=== PATIENT | female | born 1950 | race Caucasian/White ===

== ENCOUNTER 2020-12-19 14:49 | Outpatient (CLI) | payer MEDICARE ==
--- NOTE | 2020-12-19 16:09 | MRI Report ---
PROCEDURE: Brain W/O INDICATIONS: COGNITIVE IMPAIRMENT TECHNIQUE: Noncontrast axial T1 spin echo, axial T2 fast spin echo, sagittal and axial FLAIR, coronal T2 fast sp in echo, axial gradient echo, axial diffusion and ADC through the brain. COMPARISON: None. FINDINGS: Image quality: Degraded by patient motion artifact. CSF Spaces: Basal cisterns are patent. No extra-axial fluid collections. There is diffuse prominenc e of CSF space with prominence of the ventricles out of proportion prominence of the sulci which coul d be due to central volume loss versus normal pressure hydrocephalus. Brain: No intracranial masses or hemorrhage. Pedraza/white matter interface is normal. Brainstem appe ars normal. Diffusion-weighted images demonstrate no acute ischemic insult. No chronic ischemic ins ults. Normal intravascular flow voids are present. Skull and face: Calvarium has normal marrow signal. Orbits appear normal. Sinuses: Sinuses and mastoids are clear. IMPRESSION: 1. Image quality degraded by patient motion artifact. 2. Diffuse cerebral volume loss. 3. Mild ventriculomegaly. Finding could due to central volume loss versus normal pressure hydrocephal us. Recommend correlation with clinical findings. 4. No abnormal intracranial mass or mass effect. 5. No areas of acute or chronic infarction. Reviewed by: Esther Savage MD, PhD on 12/19/2020 4:08 PM PDT Approved by: Esther Savage MD, PhD on 12/19/2020 4:08 PM PDT Station ID: [id number]
== END 2020-12-19 14:50 | disposition home or self-care (01) ==
LOC: DI 14:49
PROVIDERS: ATTEND Psychiatry & Neurology Neurology
DX: R41.89 Other symptoms and signs involving cognitive functions and awareness (principal); R42 Dizziness and giddiness; G93.89 Other specified disorders of brain

== ENCOUNTER 2021-06-24 11:40 | Outpatient (CLI) | payer MEDICARE | END 2021-06-24 11:41 | disposition critical access hospital (66) | LOC: EMS 11:40 | DX: R52 Pain, unspecified (principal); R41.0 Disorientation, unspecified; Z86.73 Personal history of transient ischemic attack (TIA), and cerebral infarction without residual deficits; Z87.440 Personal history of urinary (tract) infections | CPT/HCPCS: A0425; A0429 ==

== ENCOUNTER 2021-06-24 11:55 | Emergency (ER) | payer MEDICARE ==
--- NOTE | 2021-06-24 12:08 | ED Physician Documentation ---
PD HPI ALTERED MENTAL STATUS - Stated complaint Stated Complaint: CONFUSED - History obtained from History obtained from: Patient, Family (daughter is here with her), EMS - History of Present Illness Timing - onset: Yesterday Timing - duration: Days (1) Timing - details: Gradual onset, Still present Quality / character: Confused (Patient with a history of some Alzheimer's but typically is able to have conversation but just has memory deficit. Since yesterday has been less verbal and more having echolalia. No focal weakness. No facial droop. Words are discernible.), Other (stiffness of movement for right hip and leg without pain. Baseline stiffness with left leg) Associated symptoms: Other (The patient's daughter is here to give history. She states the patient did test positive for COVID on June 06 through without really any upper respiratory symptoms nor dyspnea. Has been negative after that.). No: Fever, Dyspnea, Cough Contributing factors: Recent illness. No: Anticoagulated, Recent med change, Recent injury (no falls nor injury.) Basline status: Ambulatory, Disoriented Similar symptoms before: Diagnosis (The patient's daughter states she has had confusion and decreased interaction with infections in the past, in particular UTIs.) Review of Systems Constitutional: denies: Fever Nose: denies: Congestion Cardiac: denies: Chest pain / pressure Respiratory: denies: Dyspnea, Cough GI: denies: Abdominal Pain, Vomiting, Diarrhea : reports: Incontinent Neurologic: denies: Focal weakness (actually stiffness without spasticity in legs, left more than right, which patient says will happen with patient at times (left leg).) PD PAST MEDICAL HISTORY - Past Medical History Cardiovascular: None Respiratory: None Neuro: Alzhiemer's, Dementia (daughter says Neurologist at has Dx with neurologic disorder affecting lower motor neurons and thus leg stiffness at times.), CVA Endocrine/Autoimmune: None - Present Medications Home Medications: Ambulatory Orders Medication Instructions Recorded Confirmed Baclofen [Lioresal] 5 mg PO DAILY 06/24/21 06/24/21 Losartan Potassium 0.5 tab PO DAILY 06/24/21 06/24/21 Sertraline HCl 100 mg PO DAILY 06/24/21 06/24/21 cephALEXin [Keflex] 500 mg PO TID 7 Days #20 cap 06/24/21 - Allergies Allergies/Adverse Reactions: Allergies Allergy/AdvReac Type Severity Reaction Status Date / Time No Known Drug Allergies Allergy Verified 06/24/21 12:40 PD ED PE NORMAL - Vitals Vital signs reviewed: Yes - General General: Well developed/nourished. No: Alert and oriented X 3 (oriented to person. She does repeat what I say often rather than responding per se. ) - HEENT HEENT: Atraumatic, PERRL, EOMI - Neck Neck: Supple, no meningeal sign, No bony TTP, No adenopathy - Cardiac Cardiac: RRR, No murmur - Respiratory Respiratory: Clear bilaterally - Abdomen Abdomen: Soft, Non tender, Non distended - Derm Derm: Normal color, Warm and dry - Extremities Extremities: No edema, No calf tenderness / cord - Neuro Neuro: Other (Stiffness without spasticity nor cogwheeling of both legs, more on the left. No obvious pain on range of motion. No obvious deformities.). No: Alert and oriented X 3 (will state her name. Otherwise alert but not spontaneous ly verbal. Repeating questions asked rather than responding per se most of the time. ) Results - Vitals Vitals: Vital Signs - 24 hr 06/24/21 06/24/21 06/24/21 12:05 12:44 13:14 Temperature 36.4 C L Heart Rate 76 70 72 Respiratory 19 15 18 Rate Blood Pressure 130/74 141/69 H 133/70 H O2 Saturation 98 100 99 06/24/21 06/24/21 06/24/21 13:30 14:00 14:30 Temperature 36.7 C 36.0 C L Heart Rate 68 79 80 Respiratory 16 16 17 Rate Blood Pressure 125/71 128/73 147/124 H O2 Saturation 99 100 95 06/24/21 15:00 Temperature Heart Rate 96 Respiratory 20 Rate Blood Pressure 134/74 H O2 Saturation 96 Oxygen O2 Source Room air - EKG (time done) 12:41 Rate: Rate (enter#) (69) Rhythm: NSR [place]: Normal Intervals: Normal IN QRS: Normal Ischemia: Normal ST segments. No: ST elevation c/w ischemia, ST depression - Labs Labs: Laboratory Tests 06/24/21 06/24/21 06/24/21 12:05 12:05 12:05 WBC 7.1 RBC 4.76 Hgb 12.4 Hct 38.8 MCV 81.5 MCH 26.1 L MCHC 32.0 RDW 14.6 Plt Count 241 MPV 10.7 Neut # (Auto) 5.2 Lymph # (Auto) 1.2 L [place] # (Auto) 0.6 Eos # (Auto) 0.0 Baso # (Auto) 0.0 Absolute Nucleated RBC 0.00 Nucleated RBC % 0.0 ESR 16 Sodium 134 L Potassium 3.4 L Chloride 95 L Carbon Dioxide 29 Anion Gap 10.0 BUN 15 Creatinine 0.6 Estimated GFR (MDRD) 99 Glucose 115 H Calcium 9.3 Magnesium 2.0 Total Bilirubin 0.6 AST 19 ALT 16 Alkaline Phosphatase 45 Total Creatine Kinase 88 Troponin I High Sens Total Protein 6.6 L Albumin 3.7 Globulin 2.9 Albumin/Globulin Ratio 1.3 Lipase 34 Urine Color Urine Clarity Urine pH Ur Specific Susan Urine Protein Urine Glucose (UA) Urine Ketones Urine Occult Blood Urine Nitrite Urine Bilirubin Urine Urobilinogen Ur Leukocyte Esterase Urine RBC Urine WBC Ur Squamous Epith Cells Amorphous Sediment Urine Bacteria Ur Microscopic Review Urine Culture Comments 06/24/21 06/24/21 12:05 13:15 WBC RBC Hgb Hct MCV MCH MCHC RDW Plt Count MPV Neut # (Auto) Lymph # (Auto) [place] # (Auto) Eos # (Auto) Baso # (Auto) Absolute Nucleated RBC Nucleated RBC % ESR Sodium Potassium Chloride Carbon Dioxide Anion Gap BUN Creatinine Estimated GFR (MDRD) Glucose Calcium Magnesium Total Bilirubin AST ALT Alkaline Phosphatase Total Creatine Kinase Troponin I High Sens 11.0 Total Protein Albumin Globulin Albumin/Globulin Ratio Lipase Urine Color DARK YELLOW Urine Clarity HAZY Urine pH 6.0 Ur Specific Susan 1.025 Urine Protein TRACE Urine Glucose (UA) NEGATIVE Urine Ketones TRACE Urine Occult Blood NEGATIVE Urine Nitrite NEGATIVE Urine Bilirubin NEGATIVE Urine Urobilinogen 0.2 (NORMAL) Ur Leukocyte Esterase MODERATE H Urine RBC 0-5 Urine WBC >25 H Ur Squamous Epith Cells FEW Squamous Amorphous Sediment Few Urine Bacteria Moderate H Ur Microscopic Review INDICATED Urine Culture Comments INDICATED - Rads (name of study) head CT Radiology: Prelim report reviewed (no acute process. Degenerative changes with volume loss and enlarged ventricles. ), See rad report chest xray Radiology: Prelim report reviewed (no infiltrates nor acute process. ), See rad report PD MEDICAL DECISION MAKING - ED course Complexity details: reviewed results (UA suggestive of UTI and has correlated with similar changes in mentation in the past. Head CT no acute process. ), re- evaluated patient (The patient is unchanged after fluids. The daughter did not think she is her too dehydrated anyway. She was given initial dose of antibiotics. The daughter is comfortable with the patient back at the care facility. Due to the dementia and inability to walk right now, we did feel BLS transport.), considered differential (decreased interaction wtihout focal weakness (stiffness of legs more c/w her neurologic disorder). ), d/w patient, d/w family (daughter) Departure - Departure Disposition: 01 Home, Self Care Clinical Impression: Altered mental status, UTI (urinary tract infection), Muscle stiffness Condition: Stable Instructions: ED UTI Cystitis Female Follow-Up: Bird Cisneros MD [Primary Care Provider] - Prescriptions: cephALEXin [Keflex] 500 mg PO TID 7 Days #20 cap Comments: I transmitted the prescription for cephalexin 3 times a day for 7 days to [facility] in [place]. This is a capsule also could be broken open and given as the granules form if that is easier. Continue with other usual medications. No other obvious process on your basic blood tests, chest x-ray, head CT. The urine did show signs of a urinary tract infection and hopefully this is what is causing her cognitive change as it has in the past. We did push the imaging of the head CT to the system so your neurologist can should be able to view it. Recheck if not improving over the next couple of days. Discharge Date/Time: 06/24/21 15:50
[2021-06-24] MEDS ORDERED: SODIUM CHLORIDE 0.9% 1,000 ML IV STA (12:36)
[2021-06-24 12:45] LABS: BASOPHILS % (AUTO) 0.4 %; EOSINOPHILS % (AUTO) 0.4 %; HCT - HEMATOCRIT 38.8 % (37.0-47.0); HGB - HEMOGLOBIN 12.4 g/dL (12.0-16.0); LYMPHOCYTES # (AUTO) 1.2 10^3/uL (1.5-3.5); MEAN CORPUSCULAR HEMOGLOBIN 26.1 pg (27.0-31.0); MEAN CORPUSCULAR VOLUME 81.5 fL (81.0-99.0); MEAN PLATELET VOLUME 10.7 fL (7.9-10.8); MONOCYTES # (AUTO) 0.6 10^3/uL (0.0-1.0); MONOCYTES % (AUTO) 8.6 %; NEUTROPHILS # (AUTO) 5.2 10^3/uL (1.5-6.6); NEUTROPHILS % (AUTO) 73.2 %; PLT - PLATELET COUNT 241 10^3/uL (130-450); RED BLOOD COUNT 4.76 10^6/uL (4.20-5.40); RED CELL DISTRIBUTION WIDTH 14.6 % (12.0-15.0); WHITE BLOOD COUNT 7.1 x10^3/uL (4.8-10.8)
[2021-06-24 12:57] LABS: ALBUMIN 3.7 g/dL (3.2-5.5); ALBUMIN/GLOBULIN RATIO 1.3 (1.0-2.2); BILIRUBIN,TOTAL 0.6 mg/dL (0.2-1.0); CALCIUM 9.3 mg/dL (8.5-10.3); CREATININE 0.6 mg/dL (0.4-1.0); POTASSIUM 3.4 mmol/L (3.5-5.0); TOTAL PROTEIN 6.6 g/dL (6.7-8.2)
--- NOTE | 2021-06-24 13:04 | CT Report ---
PROCEDURE: HEAD WO INDICATIONS: confused/ decreased alert since yesterday TECHNIQUE: Noncontrast 4.5 mm thick angled axial sections acquired from the foramen magnum to the vertex. For r adiation dose reduction, the following was used: automated exposure control, adjustment of mA and/or kV according to patient size. COMPARISON: Correlation is made with prior brain MRI, 12/19/2020 FINDINGS: Image quality: Excellent. CSF spaces: Basal cisterns are patent. No extra-axial fluid collections. Ventricles are stable and symmetric, yet enlarged. Brain: No midline shift. No intracranial masses or hemorrhage. Pedraza-white matter interface is norm al. Skull and face: Calvarium and visualized facial bones are intact, without suspicious lesions. Sinuses: Moderate mucosal thickening is seen within the maxillary sinuses, with milder mucosal thick ening seen elsewhere within the paranasal sinuses. No significant abnormal fluid can be seen within t he mastoid air cells. IMPRESSION: No intracranial hemorrhage is seen. Brain parenchymal volume loss and chronic small vessel ischemic change can be seen, without an acute intracranial process identified. Stable enlarged lateral ventricles. Please consider normal pressure hydrocephalus. Reviewed by: Bryan Simms MD on 06/24/2021 12:03 PM [facility] Approved by: Bryan Simms MD on 06/24/2021 12:03 PM [facility] Station ID: [id number]
[2021-06-24 13:23] LABS: GLUCOSE, URINE (UA) NEGATIVE (NEGATIVE); KETONES,URINE (UA) TRACE mg/dL (NEGATIVE); LEUKOCYTE ESTERASE, URINE MODERATE (NEGATIVE); NITRITE,URINE NEGATIVE (NEGATIVE); OCCULT BLOOD,URINE NEGATIVE (NEGATIVE); PROTEIN,URINE TRACE mg/dL (NEGATIVE); UROBILINOGEN,URINE 0.2 (NORMAL) E.U./dL (NORMAL)
--- NOTE | 2021-06-24 13:24 | XRAY Report ---
PROCEDURE: Chest 1 View X-Ray INDICATIONS: altered mentation TECHNIQUE: One view of the chest was acquired. COMPARISON: None. FINDINGS: Surgical changes and devices: None. Lungs and pleura: No pleural effusions or pneumothorax. Lungs are clear. Mediastinum: Mediastinal contours appear normal. Heart size is normal. Bones and chest wall: No suspicious bony lesions. Overlying soft tissues appear unremarkable. IMPRESSION: No acute cardiopulmonary abnormality. Reviewed by: Davey Lopez MD on 06/24/2021 1:23 PM [facility] Approved by: Davey Lopez MD on 06/24/2021 1:23 PM [facility] Station ID: [id number]
[2021-06-24 13:37] LABS: CLARITY,URINE HAZY (CLEAR)
[2021-06-24 13:40] LABS: BILIRUBIN,URINE NEGATIVE (NEGATIVE); ICTOTEST,URINE NEGATIVE
[2021-06-24 13:44] LABS: AMORPHOUS SEDIMENT,UR Few /LPF; BACTERIA,URINE Moderate /HPF (None Seen); RBC,URINE 0-5 /HPF (0-5); SQUAMOUS EPITHELIAL CELL,UR FEW Squamous (<= Few); WBC,URINE >25 /HPF (0-5)
[2021-06-24] MEDS ORDERED: cefTRIAXone 1 GM VIAL IVP STA (13:46)
[2021-06-24] MEDS ORDERED: LACTATED RINGERS 1,000 ML IV STA (14:20)
[2021-06-24 15:06] VITALS: BP 134/74
== END 2021-06-24 15:50 | disposition home or self-care (01) ==
LOC: EDUNIT# → EDBD → ED 11:55
DX: R41.82 Altered mental status, unspecified (principal); N39.0 Urinary tract infection, site not specified; M62.89 Other specified disorders of muscle; Z86.16 Personal history of COVID-19; G30.9 Alzheimer's disease, unspecified; F02.80 Dementia in other diseases classified elsewhere, unspecified severity, without behavioral disturbance, psychotic disturbance, mood disturbance, and anxiety; Z74.09 Other reduced mobility
CPT/HCPCS: 36415; 51701; 70450; 71045; 80053; 81001; 82550; 83690; 83735; 84484; 85025; 85651; 87086; 93005; 96374; 99283; 99284; J7120; 81003

== ENCOUNTER 2021-06-24 15:56 | Outpatient (CLI) | payer MEDICARE | END 2021-06-24 15:57 | disposition home or self-care (01) | LOC: EMS 15:56 | PROVIDERS: ATTEND Emergency Medicine | DX: N39.0 Urinary tract infection, site not specified (principal); R53.1 Weakness; R41.0 Disorientation, unspecified | CPT/HCPCS: A0425; A0428 ==

== ENCOUNTER 2021-07-04 11:37 | Outpatient (CLI) | payer MEDICARE ==
[2021-07-04 11:52] LABS: BILIRUBIN,URINE NEGATIVE (NEGATIVE); GLUCOSE, URINE (UA) NEGATIVE (NEGATIVE); KETONES,URINE (UA) NEGATIVE (NEGATIVE); LEUKOCYTE ESTERASE, URINE TRACE (NEGATIVE); NITRITE,URINE NEGATIVE (NEGATIVE); OCCULT BLOOD,URINE TRACE-INTA (NEGATIVE); PROTEIN,URINE NEGATIVE (NEGATIVE); UROBILINOGEN,URINE 0.2 (NORMAL) E.U./dL (NORMAL)
[2021-07-04 12:00] LABS: BACTERIA,URINE Few /HPF (None Seen); CLARITY,URINE HAZY (CLEAR); CRYSTALS,URINE 6-10 Calcium Oxalate /LPF; MUCUS,URINE Moderate Strands; RBC,URINE 0-5 /HPF (0-5); SQUAMOUS EPITHELIAL CELL,UR MOD Squamous (<= Few)
== END 2021-07-04 11:38 | disposition home or self-care (01) ==
LOC: LAB 11:37
PROVIDERS: ATTEND Psychiatry & Neurology Neurology
DX: N39.0 Urinary tract infection, site not specified (principal)
CPT/HCPCS: 81001; 87086

== ENCOUNTER 2021-07-04 17:09 | Outpatient (CLI) | payer MEDICARE | END 2021-07-04 17:10 | disposition critical access hospital (66) | LOC: EMS 17:09 | DX: R39.89 Other symptoms and signs involving the genitourinary system (principal); R41.89 Other symptoms and signs involving cognitive functions and awareness; F03.90 Unspecified dementia, unspecified severity, without behavioral disturbance, psychotic disturbance, mood disturbance, and anxiety | CPT/HCPCS: A0425; A0429 ==

== ENCOUNTER 2021-07-04 17:24 | Emergency (ER) | payer MEDICARE ==
--- NOTE | 2021-07-04 17:43 | ED Physician Documentation ---
History of Present Illness - Stated complaint Stated Complaint: FEM - Chief complaint Chief Complaint: General - Additonal information Additional information: 70-year-old female presents emergency department for evaluation of acute urinary retention. Per her daughter and caregiver at the bedside patient has not been able to urinate now for 24 hours. She was able to provide a very small amount of urine for a urine sample that was sent to the lab. The patient was seen here on 24 June for generalized weakness. At that time found to have a urinary tract infection and did complete a 4-week of antibiotics. Much of the history is obtained from the patient's daughter. Patient has a neurocognitive disorder perhaps early dementia or a basal degenerative disorder. It is unclear at this time. Review of Systems Unable to obtain: Dementia PD PAST MEDICAL HISTORY - Past Medical History Cardiovascular: None Respiratory: None Neuro: Alzhiemer's, Dementia (daughter says Neurologist at has Dx with neurologic disorder affecting lower motor neurons and thus leg stiffness at times.), CVA Endocrine/Autoimmune: None - Present Medications Home Medications: Ambulatory Orders Medication Instructions Recorded Confirmed Losartan Potassium 0.5 tab PO DAILY 06/24/21 06/24/21 Sertraline HCl 100 mg PO DAILY 06/24/21 06/24/21 polyethylene glycoL 3350 [Miralax] 17 gm PO DAILY PRN #1 bottle 07/04/21 - Allergies Allergies/Adverse Reactions: Allergies Allergy/AdvReac Type Severity Reaction Status Date / Time No Known Drug Allergies Allergy Verified 06/24/21 12:40 PD ED PE NORMAL - General General: Alert and oriented X 3, No acute distress - HEENT HEENT: Atraumatic, Moist mucous membranes - Neck Neck: Supple, no meningeal sign - Cardiac Cardiac: RRR, No murmur - Respiratory Respiratory: No respiratory distress - Abdomen Abdomen: Normal bowel sounds, Soft, Non tender (Palpably distended bladder with tenderness.) - Back Back: No CVA TTP, No spinal TTP - Derm Derm: Normal color, Warm and dry, No rash - Extremities Extremities: No deformity, No tenderness to palpate, Normal ROM s pain - Neuro Neuro: Alert and oriented X 3, 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 Eye Opening: Spontaneous Motor: Obeys Commands Verbal: Oriented GCS Score: 15 - Psych Psych: Normal mood Results - Vitals Vitals: Vital Signs - 24 hr 07/04/21 07/04/21 17:32 18:25 Temperature 36.2 C L Heart Rate 80 Respiratory 20 15 Rate Blood Pressure 146/78 H 130/74 O2 Saturation 100 Oxygen O2 Source Room air - Labs Labs: Laboratory Tests 07/04/21 07/04/21 17:47 17:47 WBC 6.1 RBC 4.62 Hgb 12.1 Hct 38.0 MCV 82.3 MCH 26.2 L MCHC 31.8 L RDW 15.3 H Plt Count 255 MPV 10.4 Neut # (Auto) 4.1 Lymph # (Auto) 1.4 L [place] # (Auto) 0.5 Eos # (Auto) 0.1 Baso # (Auto) 0.0 Absolute Nucleated RBC 0.00 Nucleated RBC % 0.0 Sodium 132 L Potassium 3.5 Chloride 96 L Carbon Dioxide 27 Anion Gap 9.0 BUN 14 Creatinine 0.5 Estimated GFR (MDRD) 122 Glucose 107 H Calcium 9.5 Total Bilirubin 0.7 AST 15 ALT 13 Alkaline Phosphatase 38 L Total Protein 6.7 Albumin 3.9 Globulin 2.8 Albumin/Globulin Ratio 1.4 Lipase 54 H - Rads (name of study) CT abd Radiology: Final report received (No renal stone or hydronephrosis. No perinephric fat stranding. No hydroureter. Normal-appearing urinary bladder. Mild fecal stasis and moderate fecal impaction in the rectum.) PD MEDICAL DECISION MAKING - ED course Complexity details: reviewed results, re-evaluated patient, d/w patient ED course: 70-year-old female who has a history of early onset dementia versus temporal lobe will frontal dementia or a neurogenic degenerative syndrome presents the emergency department for evaluation of difficulty urinating for 24 hours. She was diagnosed with a urinary tract infection on 24 June and completed a week of antibiotics. Patient's sister reports that over the last 24 hours the patient has only been able to void once or perhaps twice. The urine sample that was obtained today at home was sent to the lab for evaluation and does not show signs of infection. Here in the emergency department on presentation the patient's bladder did feel distended and a bladder scan revealed 124 mils of urine. I initially ordered a Bishop catheterization to assess the true volume of urinary output however the patient voided and saturated her pad shortly thereafter. I discussed with the patient's daughter that given she no longer has findings of obstruction it would be okay to discharge her back home however her daughter is very concerned that voiding only once or twice a 24 hours is sign of a more insidious problem and is requesting CT scan. Therefore we will proceed with CT abdomen and pelvis. Screening labs do not show any acute worrisome abnormalities. 194: CT of the abdomen has revealed that patient has a large amount of fecal impaction. I suspect the stool burden is the cause of her difficulty urinating. Findings were discussed with patient and daughter at bedside. Patient will be started on MiraLAX. If despite resolution of the constipation she is still having a difficult time urinating that she should return to the ER for a second look. Departure - Departure Disposition: Home, Self Care Clinical Impression: Constipation Qualifiers: Constipation type: unspecified constipation type Qualified Code(s): K59.00 - Constipation, unspecified Condition: Stable Record reviewed to determine appropriate education?: Yes Instructions: ED Constipation Prescriptions: polyethylene glycoL 3350 [Miralax] 17 gm PO DAILY PRN #1 bottle PRN Reason: Constipation Comments: Belle was seen in the emergency department today for concerns of difficulty ur inating. The urine sample that was dropped off earlier in the day did not show signs of infection. Her screening labs today are also without worrisome findings. While here in the emergency department she did void a large amount of urine. We subsequently did do a CT scan of her abdomen and pelvis that did not show any worrisome findings with the exception of a large amount of fecal impaction in her colon. People that become extremely constipated can have a difficult time urinating. It is important that she stay well-hydrated and drink a lot of water. To help relieve the constipation she is to take 1 capful of MiraLAX in 8 ounces of water once or twice a day until she has 3 or 4 watery bowel movements. If despite reducing the constipation her urinary symptoms do not resolve then she is to return to the ER for a second evaluation. A prescription for MiraLAX was sent to the [facility] drug.
[2021-07-04 17:52] LABS: BASOPHILS % (AUTO) 0.3 %; EOSINOPHILS # (AUTO) 0.1 10^3/uL (0.0-0.7); HGB - HEMOGLOBIN 12.1 g/dL (12.0-16.0); LYMPHOCYTES # (AUTO) 1.4 10^3/uL (1.5-3.5); LYMPHOCYTES % (AUTO) 22.1 %; MEAN CORPUSCULAR HEMOGLOBIN 26.2 pg (27.0-31.0); MEAN CORPUSCULAR HGB CONC 31.8 g/dL (32.0-36.0); MEAN CORPUSCULAR VOLUME 82.3 fL (81.0-99.0); MEAN PLATELET VOLUME 10.4 fL (7.9-10.8); MONOCYTES # (AUTO) 0.5 10^3/uL (0.0-1.0); MONOCYTES % (AUTO) 8.8 %; NEUTROPHILS # (AUTO) 4.1 10^3/uL (1.5-6.6); NEUTROPHILS % (AUTO) 67.3 %; PLT - PLATELET COUNT 255 10^3/uL (130-450); RED BLOOD COUNT 4.62 10^6/uL (4.20-5.40); RED CELL DISTRIBUTION WIDTH 15.3 % (12.0-15.0); WHITE BLOOD COUNT 6.1 x10^3/uL (4.8-10.8)
[2021-07-04 18:09] LABS: ALBUMIN 3.9 g/dL (3.2-5.5); ALBUMIN/GLOBULIN RATIO 1.4 (1.0-2.2); BILIRUBIN,TOTAL 0.7 mg/dL (0.2-1.0); CALCIUM 9.5 mg/dL (8.5-10.3); CREATININE 0.5 mg/dL (0.4-1.0); POTASSIUM 3.5 mmol/L (3.5-5.0); TOTAL PROTEIN 6.7 g/dL (6.7-8.2)
[2021-07-04] MEDS ORDERED: SODIUM CHLORIDE 0.9% 1,000 ML IV STA (18:20)
[2021-07-04] MEDS ORDERED: IOVERSOL 320 100 ML VIAL IVP ONE ×2 (18:23→20:51)
--- NOTE | 2021-07-04 19:11 | CT Report ---
PROCEDURE: Abdomen/Pelvis W INDICATIONS: urinary obstruction CONTRAST: IV CONTRAST: Optiray 320 ml: 100 PO CONTRAST: *NO PO CONTRAST TECHNIQUE: After the administration of IV contrast, 5 mm thick sections acquired from the diaphragms to the symp hysis. 5 mm thick coronal and sagittal reformats were acquired. For radiation dose reduction, the f ollowing was used: automated exposure control, adjustment of mA and/or kV according to patient size. COMPARISON: None. FINDINGS: Image quality: Excellent. ABDOMEN: Lung bases: Dependent atelectasis in posterior aspect of bilateral lung bases are seen. Heart size is normal. Solid organs: Liver and spleen are normal in size and enhancement. Possible 1 cm cyst is seen in an terior segment of right hepatic lobe series 3 image 21. Gallbladder is within normal limits Biliary system is non dilated. Pancreas enhances normally. No adrenal nodules. Kidneys demonstrate normal size and enhancement, without hydronephrosis. No perinephric fat stranding. Peritoneum and bowel: There is a small hiatal hernia. Bowel loops demonstrate normal wall thickness and caliber. No free fluid or air. Fecal stasis in the colon is seen with significant fecal impactio n in the rectum. Nodes and vessels: No retroperitoneal or mesenteric adenopathy by size criteria. Aorta and inferior vena cava are normal in size. Miscellaneous: No ventral hernias. PELVIS: Genitourinary: Bladder wall thickness is normal. No gross abnormality is seen in uterus and bilater al ovaries. Miscellaneous: No inguinal hernias or adenopathy. Bones: No suspicious bony lesions. No vertebral body compression fractures. IMPRESSION: 1. No renal stone or hydronephrosis. No perinephric fat stranding. No hydroureter. Normal-appearing u rinary bladder. 2. Mild fecal stasis and moderate fecal impaction in the rectum. No abnormal bowel wall thickening. N o free fluid of free air. Small hiatal hernia. Reviewed by: Ignacio Acosta MD on 07/04/2021 7:09 PM PST Approved by: Ignacio Acosta MD on 07/04/2021 7:09 PM PST Station ID: [id number]
[2021-07-04 20:11] VITALS: BP 127/102
== END 2021-07-04 20:23 | disposition home or self-care (01) ==
LOC: EDUNIT# → ED 17:24
DX: K59.00 Constipation, unspecified (principal)
CPT/HCPCS: 36415; 74177; 80053; 83690; 85025; 99281; 99284; Q9967

== ENCOUNTER 2021-07-04 20:29 | Outpatient (CLI) | payer MEDICARE | END 2021-07-04 20:30 | disposition home or self-care (01) | LOC: EMS 20:29 | PROVIDERS: ATTEND Registered Nurse | DX: R53.1 Weakness (principal); K59.00 Constipation, unspecified; Z74.01 Bed confinement status | CPT/HCPCS: A0425; A0428 ==

== ENCOUNTER 2021-09-09 08:00 | Outpatient (CLI) | payer MEDICARE ==
[2021-09-09 12:05] LABS: BILIRUBIN,URINE NEGATIVE (NEGATIVE); GLUCOSE, URINE (UA) NEGATIVE (NEGATIVE); KETONES,URINE (UA) NEGATIVE (NEGATIVE); LEUKOCYTE ESTERASE, URINE MODERATE (NEGATIVE); NITRITE,URINE POSITIVE (NEGATIVE); OCCULT BLOOD,URINE NEGATIVE (NEGATIVE); PROTEIN,URINE NEGATIVE (NEGATIVE); UROBILINOGEN,URINE 0.2 (NORMAL) E.U./dL (NORMAL)
[2021-09-09 13:00] LABS: BACTERIA,URINE Few /HPF (None Seen); CLARITY,URINE TURBID (CLEAR); CRYSTALS,URINE 3-5 Calcium Oxalate /LPF; RBC,URINE None Seen /HPF (0-5); SQUAMOUS EPITHELIAL CELL,UR FEW Squamous (<= Few); WBC,URINE >25 /HPF (0-5)
== END 2021-09-09 23:59 | disposition home or self-care (01) ==
LOC: LAB.R 08:00
PROVIDERS: ATTEND Psychiatry & Neurology Neurology
DX: N39.0 Urinary tract infection, site not specified (principal)
CPT/HCPCS: 81001; 87077; 87086; 87181

== ENCOUNTER 2021-09-14 08:00 | Outpatient (CLI) | payer MEDICARE ==
[2021-09-14 10:19] LABS: BILIRUBIN,URINE NEGATIVE (NEGATIVE); GLUCOSE, URINE (UA) NEGATIVE (NEGATIVE); KETONES,URINE (UA) NEGATIVE (NEGATIVE); LEUKOCYTE ESTERASE, URINE NEGATIVE (NEGATIVE); NITRITE,URINE NEGATIVE (NEGATIVE); OCCULT BLOOD,URINE NEGATIVE (NEGATIVE); PROTEIN,URINE NEGATIVE (NEGATIVE); UROBILINOGEN,URINE 0.2 (NORMAL) E.U./dL (NORMAL)
[2021-09-14 10:22] LABS: CLARITY,URINE CLEAR (CLEAR)
== END 2021-09-14 23:59 | disposition home or self-care (01) ==
LOC: LAB.R 08:00
PROVIDERS: ATTEND Psychiatry & Neurology Neurology
DX: N39.0 Urinary tract infection, site not specified (principal)
CPT/HCPCS: 81003; 87086

== ENCOUNTER 2021-10-06 20:35 | Outpatient (CLI) | payer MEDICARE ==
[2021-10-07 08:28] LABS: BILIRUBIN,URINE NEGATIVE (NEGATIVE); GLUCOSE, URINE (UA) NEGATIVE (NEGATIVE); KETONES,URINE (UA) NEGATIVE (NEGATIVE); LEUKOCYTE ESTERASE, URINE LARGE (NEGATIVE); NITRITE,URINE NEGATIVE (NEGATIVE); OCCULT BLOOD,URINE NEGATIVE (NEGATIVE); PH,URINE 5.5 PH (5.0-7.5); PROTEIN,URINE NEGATIVE (NEGATIVE); UROBILINOGEN,URINE 0.2 (NORMAL) E.U./dL (NORMAL)
[2021-10-07 08:29] LABS: CLARITY,URINE CLOUDY (CLEAR)
[2021-10-07 08:46] LABS: BACTERIA,URINE Many /HPF (None Seen); RBC,URINE None Seen /HPF (0-5); SQUAMOUS EPITHELIAL CELL,UR MOD Squamous (<= Few); WBC,URINE >25 /HPF (0-5)
[2021-10-07 08:47] LABS: CRYSTALS,URINE 6-10 Calcium Oxalate /LPF
== END 2021-10-06 23:59 | disposition home or self-care (01) ==
LOC: LAB.R 20:35
DX: R41.82 Altered mental status, unspecified (principal); R53.1 Weakness; R35.89 Other polyuria; R30.0 Dysuria
CPT/HCPCS: 81001; 87086

== ENCOUNTER 2021-10-18 08:33 | Outpatient (CLI) | payer MEDICARE ==
[2021-10-18 11:38] LABS: FECAL OCCULT BLOOD (FIT) POSITIVE (NEGATIVE)
== END 2021-10-18 08:34 | disposition home or self-care (01) ==
LOC: LAB.R 08:33
DX: R19.5 Other fecal abnormalities (principal)
CPT/HCPCS: 82274; 87045; 87046; 87427

== ENCOUNTER 2021-10-20 08:00 | Outpatient (CLI) | payer MEDICARE ==
[2021-10-20 20:22] LABS: CLARITY,URINE CLEAR (CLEAR)
[2021-10-20 20:23] LABS: BILIRUBIN,URINE NEGATIVE (NEGATIVE); GLUCOSE, URINE (UA) NEGATIVE (NEGATIVE); KETONES,URINE (UA) NEGATIVE (NEGATIVE); LEUKOCYTE ESTERASE, URINE LARGE (NEGATIVE); NITRITE,URINE NEGATIVE (NEGATIVE); OCCULT BLOOD,URINE NEGATIVE (NEGATIVE); PROTEIN,URINE NEGATIVE (NEGATIVE); UROBILINOGEN,URINE 0.2 (NORMAL) E.U./dL (NORMAL)
[2021-10-20 20:24] LABS: BACTERIA,URINE Many /HPF (None Seen); RBC,URINE 0-5 /HPF (0-5); SQUAMOUS EPITHELIAL CELL,UR MANY Squamous (<= Few); WBC,URINE >25 /HPF (0-5)
[2021-10-20 20:25] LABS: AMORPHOUS SEDIMENT,UR Moderate /LPF; WBC CLUMPS,URINE PRESENT
== END 2021-10-20 23:59 | disposition home or self-care (01) ==
LOC: LAB.R 08:00
DX: R41.82 Altered mental status, unspecified (principal); R53.1 Weakness; R35.89 Other polyuria; R30.0 Dysuria
CPT/HCPCS: 81001; 87086

== ENCOUNTER 2021-11-01 08:00 | Outpatient (CLI) | payer MEDICARE ==
[2021-11-01 18:11] LABS: BILIRUBIN,URINE NEGATIVE (NEGATIVE); GLUCOSE, URINE (UA) NEGATIVE (NEGATIVE); KETONES,URINE (UA) NEGATIVE (NEGATIVE); LEUKOCYTE ESTERASE, URINE LARGE (NEGATIVE); NITRITE,URINE POSITIVE (NEGATIVE); OCCULT BLOOD,URINE SMALL (NEGATIVE); PROTEIN,URINE TRACE mg/dL (NEGATIVE); UROBILINOGEN,URINE 0.2 (NORMAL) E.U./dL (NORMAL)
[2021-11-01 18:29] LABS: BACTERIA,URINE Moderate /HPF (None Seen); CLARITY,URINE CLOUDY (CLEAR); CRYSTALS,URINE 3-5 Calcium Oxalate /LPF; SQUAMOUS EPITHELIAL CELL,UR FEW Squamous (<= Few); WBC,URINE >25 /HPF (0-5)
== END 2021-11-01 23:59 | disposition home or self-care (01) ==
LOC: LAB.R 08:00
PROVIDERS: ATTEND Nurse Practitioner Family
DX: R41.82 Altered mental status, unspecified (principal); R53.1 Weakness; R35.89 Other polyuria; R30.0 Dysuria
CPT/HCPCS: 81001; 87077; 87086; 87181

== ENCOUNTER 2021-11-05 08:00 | Outpatient (CLI) | payer MEDICARE ==
[2021-11-05 19:46] LABS: FECAL OCCULT BLOOD (FIT) POSITIVE (NEGATIVE)
== END 2021-11-05 23:59 | disposition home or self-care (01) ==
LOC: LAB.R 08:00
PROVIDERS: ATTEND Nurse Practitioner Adult Health
DX: R19.5 Other fecal abnormalities (principal)
CPT/HCPCS: 82274

== ENCOUNTER 2021-11-15 08:00 | Outpatient (CLI) | payer MEDICARE ==
[2021-11-15 20:56] LABS: BILIRUBIN,URINE NEGATIVE (NEGATIVE); GLUCOSE, URINE (UA) NEGATIVE (NEGATIVE); KETONES,URINE (UA) NEGATIVE (NEGATIVE); LEUKOCYTE ESTERASE, URINE MODERATE (NEGATIVE); NITRITE,URINE NEGATIVE (NEGATIVE); OCCULT BLOOD,URINE NEGATIVE (NEGATIVE); PROTEIN,URINE NEGATIVE (NEGATIVE); UROBILINOGEN,URINE 0.2 (NORMAL) E.U./dL (NORMAL)
[2021-11-15 21:13] LABS: CLARITY,URINE CLEAR (CLEAR)
[2021-11-15 21:34] LABS: RBC,URINE None Seen /HPF (0-5); SQUAMOUS EPITHELIAL CELL,UR MOD Squamous (<= Few); WBC,URINE >25 /HPF (0-5)
[2021-11-15 21:35] LABS: BACTERIA,URINE Few /HPF (None Seen); CRYSTALS,URINE 6-10 Calcium Oxalate /LPF; MUCUS,URINE Few Strands
== END 2021-11-15 23:59 | disposition home or self-care (01) ==
LOC: LAB 08:00
PROVIDERS: ATTEND Nurse Practitioner Family
DX: R41.82 Altered mental status, unspecified (principal); R53.1 Weakness; R35.89 Other polyuria; R30.0 Dysuria
CPT/HCPCS: 81001; 87086

== ENCOUNTER 2022-04-03 11:02 | Day surgery (SDC) | payer MEDICARE ==
[2022-04-03] MEDS ORDERED: LACTATED RINGERS 1,000 ML IV ONE ×2 (11:06→15:45)
[2022-04-03] MEDS ORDERED: PROPOFOL 500 MG/50 ML 0 MG/0 ML VIAL ONE (14:11)
--- NOTE | 2022-04-03 14:51 | ANESTHESIA ---
Pre-Anesthesia VS, & Labs - Diagnosis screening - Procedure colonoscopy Vital Signs: Temp Pulse Resp BP Pulse Ox O2 Flow Rate 37.2 C 72 14 143/64 H 97 0 04/03/22 11:29 04/03/22 11:29 04/03/22 11:29 04/03/22 11:29 04/03/22 11:29 04/03/22 11:29 Height: 5 ft 5 in - NPO >8 hours - Is Patient ?: No - Lab Results Lab results reviewed: Yes Home Medications and Allergies Losartan Potassium 0.5 tab PO DAILY 06/24/21 Sertraline HCl 100 mg PO DAILY 06/24/21 Allergies/Adverse Reactions: Allergies Allergy/AdvReac Type Severity Reaction Status Date / Time No Known Drug Allergies Allergy Verified 06/24/21 12:40 Anes History & Medical History - Anesthetic History Anesthesia Complications: reports: No previous complications Family history of Anesthesia Complications: Denies Family history of Malignant Hyperthermia: Denies - Medical History Cardiovascular: reports: Hypertension Pulmonary: reports: None Gastrointestinal: reports: Colon polyps, Chronic diarrhea, Other Urinary: reports: None, Chronic bladder infection Neuro: reports: Alzhiemer's, Dementia (daughter says Neurologist at has Dx with neurologic disorder affecting lower motor neurons and thus leg stiffness at times.), CVA Musculoskeletal: reports: Osteoarthritis Endocrine/Autoimmune: reports: None Skin: reports: None - Surgical History General: reports: Appendectomy Gynecologic: reports: section Exam General: Alert, Oriented x3, Cooperative Dental: WNL Mouth Openin Fingerbreadth Neck Mobility: Reduced Mallampati classification: II, IV Thyromental Distance: 4-6 cm Respiratory: No respiratory distress Cardiovascular: Regular rate Mental/Cognitive Status: Other (dementia) Plan Anesthesia Type: IV Regional Consent for Procedure(s) Verified and Reviewed: Yes Code Status: Attempt Resuscitation ASA classification: 3-Severe systemic disease Is this case an emergency?: No
[2022-04-03] MEDS ORDERED: PROPOFOL 200 MG/20 ML VIAL IVP ONE (15:20)
[2022-04-03 16:04] VITALS: BP 143/70
--- NOTE | 2022-04-03 16:16 | ANESTHESIA POST OP EVALUATION ---
Anesthesia Post Eval - Post Anesthesia Eval Vitals: Last Vital Signs Temp 36.9 C 04/03/22 15:50 Pulse 85 04/03/22 15:50 Resp 16 04/03/22 15:50 BP 143/70 H 04/03/22 15:50 Pulse Ox 99 04/03/22 15:50 O2 Flow Rate 0 04/03/22 11:29 CV Function Including HR & BP: Stable Pain Control: Satisfactory Nausea & Vomiting: Negative Mental Status: Baseline Respiratory Status: Airway Patent Hydration Status: Satisfactory Anesthesia Complications: None
== END 2022-04-03 11:03 | disposition home or self-care (01) ==
LOC: SDS 11:02
PROVIDERS: ATTEND Surgery
DX: R19.5 Other fecal abnormalities (principal); I10 Essential (primary) hypertension; Z53.8 Procedure and treatment not carried out for other reasons
CPT/HCPCS: 45378; J7120

== ENCOUNTER 2022-04-03 15:10 | Outpatient (CLI) | payer MEDICARE ==
[2022-04-03 16:04] LABS: BILIRUBIN,URINE NEGATIVE (NEGATIVE); GLUCOSE, URINE (UA) NEGATIVE (NEGATIVE); KETONES,URINE (UA) NEGATIVE (NEGATIVE); LEUKOCYTE ESTERASE, URINE NEGATIVE (NEGATIVE); NITRITE,URINE NEGATIVE (NEGATIVE); OCCULT BLOOD,URINE NEGATIVE (NEGATIVE); PROTEIN,URINE NEGATIVE (NEGATIVE); UROBILINOGEN,URINE 0.2 (NORMAL) E.U./dL (NORMAL)
[2022-04-03 16:06] LABS: CLARITY,URINE CLEAR (CLEAR)
== END 2022-04-03 23:59 | disposition home or self-care (01) ==
LOC: LAB.R 15:10
PROVIDERS: ATTEND Psychiatry & Neurology Neurology
DX: R41.82 Altered mental status, unspecified (principal); R53.1 Weakness; R35.89 Other polyuria; R30.0 Dysuria
CPT/HCPCS: 81001; 81003; 87086

== ENCOUNTER 2022-06-24 08:00 | Outpatient (CLI) | payer MEDICARE ==
[2022-06-24 20:16] LABS: BILIRUBIN,URINE NEGATIVE (NEGATIVE); GLUCOSE, URINE (UA) NEGATIVE (NEGATIVE); KETONES,URINE (UA) NEGATIVE (NEGATIVE); LEUKOCYTE ESTERASE, URINE TRACE (NEGATIVE); NITRITE,URINE POSITIVE (NEGATIVE); OCCULT BLOOD,URINE NEGATIVE (NEGATIVE); PROTEIN,URINE TRACE mg/dL (NEGATIVE); UROBILINOGEN,URINE 0.2 (NORMAL) E.U./dL (NORMAL)
[2022-06-24 21:17] LABS: BACTERIA,URINE Many /HPF (None Seen); CLARITY,URINE CLOUDY (CLEAR); RBC,URINE 0-5 /HPF (0-5); SQUAMOUS EPITHELIAL CELL,UR MANY Squamous (<= Few); WBC,URINE >25 /HPF (0-5)
== END 2022-06-24 23:59 | disposition home or self-care (01) ==
LOC: LAB.R 08:00
PROVIDERS: ATTEND Nurse Practitioner Family
DX: R41.82 Altered mental status, unspecified (principal); R53.1 Weakness; R35.89 Other polyuria; R30.0 Dysuria
CPT/HCPCS: 81001; 87077; 87086; 87181

== ENCOUNTER 2022-07-08 08:00 | Outpatient (CLI) | payer MEDICARE ==
[2022-07-08 20:01] LABS: BILIRUBIN,URINE NEGATIVE (NEGATIVE); GLUCOSE, URINE (UA) NEGATIVE (NEGATIVE); KETONES,URINE (UA) NEGATIVE (NEGATIVE); LEUKOCYTE ESTERASE, URINE NEGATIVE (NEGATIVE); NITRITE,URINE NEGATIVE (NEGATIVE); OCCULT BLOOD,URINE NEGATIVE (NEGATIVE); PROTEIN,URINE NEGATIVE (NEGATIVE); UROBILINOGEN,URINE 0.2 (NORMAL) E.U./dL (NORMAL)
[2022-07-08 20:13] LABS: CLARITY,URINE CLEAR (CLEAR)
== END 2022-07-08 23:59 | disposition home or self-care (01) ==
LOC: LAB.R 08:00
PROVIDERS: ATTEND Nurse Practitioner Family
DX: R41.82 Altered mental status, unspecified (principal); R53.1 Weakness; R35.89 Other polyuria; R30.0 Dysuria
CPT/HCPCS: 81001; 81003; 87086

== ENCOUNTER 2022-09-07 15:48 | Outpatient (CLI) | payer MEDICARE | END 2022-09-07 15:49 | disposition E | LOC: EMS 15:48 | DX: I46.9 Cardiac arrest, cause unspecified (principal) ==